=== PATIENT | male | born 1940 | race Caucasian/White ===

== ENCOUNTER 2019-09-27 07:30 | Day surgery (SDC) | payer OTHER, MEDICARE ==
[2019-09-25 13:21] VITALS: BMI 28.3
[2019-09-27 09:24] VITALS: TEMP 98.2
[2019-09-27 09:49] VITALS: BP 116/66; PULSE 47
--- NOTE | 2019-09-28 17:09 | PATH ---
Surgical Pathology Report Patient Name: ETTA CHAND [facility]. Rec. #: [id number] /Age/Gender: 1940 (Age: 79) / M Account: [id number] Location: [facility] Taken: 09/27/2019 Received: 09/27/2019 Reported: 09/28/2019 Physicians: Tiago Jules M.D. Specimen(s) Received A: POLYP CECUM B: POLYP RIGHT COLON C: POLYP DISTAL COLON D: POLYP LEFT COLON Clinical History History of polyps Postoperative diagnosis: Diverticulosis, colon polyps Final Diagnosis A. CECUM POLYP, POLYPECTOMY: TUBULAR ADENOMA. B. RIGHT COLON POLYP, POLYPECTOMY: TUBULAR ADENOMA. C. DISTAL RIGHT COLON POLYP, POLYPECTOMY: TUBULAR ADENOMA. D. LEFT COLON POLYP, POLYPECTOMY: TUBULAR ADENOMA. Electronically Signed Laura Conner M.D. Gross Description A. Received in formalin, labeled "biopsy polyp cecum" is a combs, irregular portion of soft tissue measuring 0.3 cm. in greatest dimension. The specimen is submitted in toto in one cassette. B. Received in formalin, labeled "biopsy polyp right colon" is a combs, irregular portion of soft tissue measuring 0.5 cm. in greatest dimension. The specimen is submitted in toto in one cassette. C. Received in formalin, labeled "biopsy polyp distal right colon" are the 3 combs, irregular portions of soft tissue ranging from 0.1-0.5 cm. in greatest dimension. The specimens are submitted in toto in one cassette. D. Received in formalin, labeled "biopsy polyp left colon" is a combs, irregular portion of soft tissue measuring 0.4 cm. in greatest dimension. The specimen is submitted in toto in one cassette. DL/09/27/2019 saudi/09/27/2019
== END 2019-09-27 09:50 | disposition home or self-care (01) ==
LOC: FASU-ENDO 07:30
PROVIDERS: ATTEND Internal Medicine Gastroenterology
PROC: 0DBH8ZX Excision of Cecum, Via Natural or Artificial Opening Endoscopic, Diagnostic (ICD-10-PCS; 2019-09-27)
PROC: 0DBM8ZX Excision of Descending Colon, Via Natural or Artificial Opening Endoscopic, Diagnostic (ICD-10-PCS; 2019-09-27)
PROC: 0DBK8ZX Excision of Ascending Colon, Via Natural or Artificial Opening Endoscopic, Diagnostic (ICD-10-PCS; principal; 2019-09-27 08:49)
DX: Z86.010 Personal history of colon polyps (principal); D12.0 Benign neoplasm of cecum; D12.2 Benign neoplasm of ascending colon; D12.4 Benign neoplasm of descending colon; K57.30 Diverticulosis of large intestine without perforation or abscess without bleeding

== ENCOUNTER 2022-06-10 08:27 | Day surgery (SDC) | payer OTHER, MEDICARE ==
[2022-06-05 15:35] VITALS: BMI 27.7
[2022-06-10] MEDS: CYCLOPENTOLATE 2% OPHTH SOLN 2 ML BOTTLE ONE ×3 (09:00→09:10)
[2022-06-10] MEDS: CIPROFLOXACIN 0.3% EYE DROPS 5 ML BOTTLE ONE ×3 (09:00→09:10)
[2022-06-10] MEDS: TROPICAMIDE 1% OPHTH SOLN 15 ML BOTTLE ONE ×3 (09:00→09:10)
[2022-06-10] MEDS: PHENYLEPHRINE 2.5% OPHTH SOLN 15 ML BOTTLE ONE ×3 (09:00→09:10)
[2022-06-10] MEDS ORDERED: EPINEPHrine/PF 1 MG/1 ML (1:1,000) AMPULE ONE (09:13)
[2022-06-10] MEDS ORDERED: LIDOCAINE 1% P/F 10 MG/ML VIAL ONE (09:13)
[2022-06-10] MEDS ORDERED: TETRACAINE 0.5% OPHTH SOLN 2 ML BOTTLE ONE (09:14)
[2022-06-10] MEDS ORDERED: CARBACHOL 0.01% INTRA-OCULAR 1.5 ML VIAL ONE (09:14)
[2022-06-10] MEDS ORDERED: NEO/POLYMYX B SULF/DEXAMETH OPHTHALMIC 5ML BOTTLE ONE (09:14)
[2022-06-10] MEDS ORDERED: BSS (NA/CA/MG/K) BALANCED SALT SOLUTION OPHTH SOLN 15 ML BOTTLE ONE (09:14)
[2022-06-10] MEDS ORDERED: MIDAZOLAM HCL 2 MG/2 ML SINGLE DOSE VIAL ONE (10:37)
[2022-06-10 12:13] VITALS: RESP 16; TEMP 97.8
[2022-06-10 12:16] VITALS: BP 107/59; PULSE 52
== END 2022-06-10 12:25 | disposition home or self-care (01) ==
LOC: FASU 08:27
PROVIDERS: ATTEND Ophthalmology
PROC: 08RJ3JZ Replacement of Right Lens with Synthetic Substitute, Percutaneous Approach (ICD-10-PCS; principal; 2022-06-10 10:43)
DX: H26.8 Other specified cataract (principal)
CPT/HCPCS: 66984; V2632

== ENCOUNTER 2022-08-05 08:35 | Day surgery (SDC) | payer OTHER, MEDICARE ==
[2022-07-30 14:43] VITALS: BMI 27.7
[2022-08-05] MEDS ORDERED: BSS (NA/CA/MG/K) BALANCED SALT SOLUTION OPHTH SOLN 15 ML BOTTLE ONE (08:41)
[2022-08-05] MEDS ORDERED: CARBACHOL 0.01% INTRA-OCULAR 1.5 ML VIAL ONE (08:41)
[2022-08-05] MEDS ORDERED: LIDOCAINE 1% P/F 10 MG/ML VIAL ONE (08:41)
[2022-08-05] MEDS ORDERED: TETRACAINE 0.5% OPHTH SOLN 2 ML BOTTLE ONE (08:41)
[2022-08-05] MEDS ORDERED: NEO/POLYMYX B SULF/DEXAMETH OPHTHALMIC 5ML BOTTLE ONE (08:41)
[2022-08-05] MEDS: TROPICAMIDE 1% OPHTH SOLN 15 ML BOTTLE ONE ×3 (09:05→09:15)
[2022-08-05] MEDS: CYCLOPENTOLATE 2% OPHTH SOLN 2 ML BOTTLE ONE ×3 (09:05→09:15)
[2022-08-05] MEDS: PHENYLEPHRINE 2.5% OPHTH SOLN 15 ML BOTTLE ONE ×3 (09:05→09:15)
[2022-08-05] MEDS: CIPROFLOXACIN 0.3% EYE DROPS 5 ML BOTTLE ONE ×3 (09:05→09:15)
[2022-08-05] MEDS ORDERED: MIDAZOLAM HCL 2 MG/2 ML SINGLE DOSE VIAL ONE (10:21)
[2022-08-05 10:57] VITALS: RESP 18; TEMP 98
[2022-08-05 11:21] VITALS: BP 110/61; PULSE 53
== END 2022-08-05 11:45 | disposition home or self-care (01) ==
LOC: FASU 08:35
PROVIDERS: ATTEND Ophthalmology
PROC: 08RK3JZ Replacement of Left Lens with Synthetic Substitute, Percutaneous Approach (ICD-10-PCS; principal; 2022-08-05 10:29)
DX: H26.8 Other specified cataract (principal)
CPT/HCPCS: 66984; V2632